=== PATIENT | female | born 1960 | race American Indian/Alaskan Native ===

== ENCOUNTER 2016-08-17 12:26 | Outpatient (CLI) | payer OTHER ==
--- NOTE | 2016-08-17 13:49 | XRay Report ---
LEFT KNEE, 3 views: History: Left knee pain. The bony architecture is intact without evidence of fracture or dislocation. A moderate joint effusion is suspected on the lateral image. IMPRESSION: Joint effusion. No acute bony abnormality.
== END 2016-08-17 12:27 | disposition home or self-care (01) ==
LOC: XRAY 12:26
PROVIDERS: ATTEND Nurse Practitioner Family
DX: M25.462 Effusion, left knee (principal)

== ENCOUNTER 2016-08-26 17:57 | Emergency (ER) | payer OTHER ==
--- NOTE | 2016-08-26 22:04 | Emergency Department Report ---
ED Lower Extremity HPI - General Chief Complaint: Extremity Injury, Lower Stated Complaint: LEFT LEG PAIN Time Seen by Provider: 08/26/16 22:03 Source: patient, family Mode of arrival: Ambulatory Limitations: No Limitations - History of Present Illness Initial Comments: Patient here reports that she has left knee pain and was sent from Dr. Allen office to get knee drained. She said she had an x-ray on August 17 and he says that she has some fluid in her knees and needs to be drained. Patient said that her knee is swollen. She denies any pain at present. Denies any fever or chills. Denies any redness to knee. Denies any injury to the knee. She has a history of arthritis. MD Complaint: other (left knee swelling and pain.) -: week(s) Injury: Knee: Left (swelling, pain. X-ray showed an effusion.) Type of Injury: unknown Place: home Severity scale (0 -10): 0 Improves With: NSAID Worsens With: weight bearing, movement Context: other Associated Symptoms: swelling, ambulatory. denies: numbness, tingling Treatments Prior to Arrival: other (none) - Related Data Previous Rx's Medication Instructions Recorded Last Taken Type Naproxen [Naprosyn TAB] 500 mg PO BID #20 tablet 08/26/16 Unknown Rx Allergies Allergy/AdvReac Type Severity Reaction Status Date / Time No Known Allergies Allergy Unverified 08/17/16 12:26 ED Review of Systems ROS: Stated complaint: LEFT LEG PAIN Other details as noted in HPI Comment: All other systems reviewed and negative Constitutional: denies: chills, fever ENT: denies: ear pain, throat pain, congestion Respiratory: no symptoms reported Cardiovascular: denies: chest pain, palpitations, edema, syncope Gastrointestinal: denies: abdominal pain, nausea, vomiting Musculoskeletal: joint swelling, arthralgia. denies: back pain, myalgia Skin: denies: rash Neurological: denies: headache, weakness, numbness, paresthesias, abnormal gait , vertigo ED Past Medical Hx - Past Medical History Previous Medical History?: Yes Hx Hypertension: Yes Hx Diabetes: Yes Additional medical history: Chronic back pain - Surgical History Past Surgical History?: Yes Additional Surgical History: FOOT SURGERY - Family History Family history: hypertension - Social History Smoking Status: Never Smoker Substance Use Type: None - Medications Home Medications: Home Medications Medication Instructions Recorded Confirmed Last Taken Type Naproxen [Naprosyn TAB] 500 mg PO BID #20 tablet 08/26/16 Unknown Rx ED Physical Exam - General Limitations: No Limitations General appearance: alert, in no apparent distress - Head Head exam: Present: atraumatic, normocephalic, normal inspection - Eye Eye exam: Present: normal appearance, PERRL, EOMI Pupils: Present: normal accommodation - Neck Neck exam: Present: normal inspection, full ROM. Absent: tenderness, lymphadenopathy - Respiratory Respiratory exam: Present: normal lung sounds bilaterally. Absent: respiratory distress, chest wall tenderness - Cardiovascular Cardiovascular Exam: Present: regular rate, normal rhythm, normal heart sounds - GI/Abdominal GI/Abdominal exam: Present: soft, normal bowel sounds. Absent: distended, tenderness, guarding, rebound, rigid - Expanded Lower Extremity Exam Left Hip exam: Present: normal inspection, full ROM, pelvic stability. Absent: tenderness, swelling, abrasion, laceration, ecchymosis, deformity, crepidus, dislocation, erythema, external rotation, internal rotation, shortening Upper Leg exam: Present: normal inspection, full ROM. Absent: tenderness, swelling, abrasion, laceration, ecchymosis, deformity, crepidus, dislocation, erythema Knee exam: Present: full ROM, tenderness (anterior knee), swelling (anterior knee), effusion, full knee extension. Absent: normal inspection, abrasion, laceration, ecchymosis, deformity, crepidus, dislocation, erythema, pain w/ pronation/supination Lower Leg exam: Present: normal inspection, full ROM. Absent: tenderness, swelling, abrasion, laceration, ecchymosis, deformity, crepidus, dislocation, erythema, palpable cord, Annalisa's sign Ankle exam: Present: normal inspection, full ROM. Absent: tenderness, swelling , abrasion, laceration, ecchymosis, deformity, crepidus, dislocation, erythema Foot/Toe exam: Present: normal inspection, full ROM. Absent: tenderness, swelling, abrasion, laceration, ecchymosis, deformity, crepidus, dislocation, erythema, amputation, puncture wound, tenderness at base of 5th metatarsal, nail avulsion, subungual hematoma Neuro vascular tendon exam: Present: no vascular compromise. Absent: pulse deficit, abnormal cap refill, motor deficit, sensory deficit, tendon deficit, extremity cold to touch, pallor, abnormal 2-point discrimination, decreased fine /light touch, foot drop, peroneal nerve deficit, significant pain with passive ROM of distal joint Gait: Positive: observed and limited by pain - Back Exam Back exam: Present: normal inspection, full ROM - Neurological Exam Neurological exam: Present: alert, oriented X3, normal gait - Psychiatric Psychiatric exam: Present: normal affect, normal mood - Skin Skin exam: Present: warm, dry, intact, normal color. Absent: rash ED Course Vital Signs 08/26/16 08/26/16 08/27/16 18:33 23:14 00:01 Temperature 98.1 F Pulse Rate 76 Respiratory 18 20 Rate Blood Pressure 161/103 Blood Pressure 140/100 [Left] O2 Sat by Pulse 100 Oximetry 08/27/16 00:24 Temperature 97.7 F Pulse Rate 56 L Respiratory 20 Rate Blood Pressure Blood Pressure [Left] O2 Sat by Pulse 96 Oximetry - Reevaluation(s) Reevaluation #1: 08/26/16 23:49 Patient given Courtenay 5/325 mg 2 tablets in emergency room for any pain. - Orthopedic Splinting/Casting Injury #1 Side: left Lower Extremity Injury Location: knee Lower Extremity Immobilizer: Farhan wrap Other Orthopedic Equipment: crutches ED Lower Extremity MDM - Lab Data Result diagrams: 08/26/16 22:22 Lab Results 08/26/16 08/26/16 08/26/16 Range/Units 22:22 22:46 22:46 WBC 7.6 (4.5-11.0) K/mm3 RBC 4.42 (3.65-5.03) M/mm3 Hgb 10.8 (10.1-14.3) gm/dl Hct 33.6 (30.3-42.9) % MCV 76 L (79-97) fl MCH 25 L (28-32) pg MCHC 32 (30-34) % RDW 16.3 H (13.2-15.2) % Plt Count 193 (140-440) K/mm3 Lymph % (Auto) 29.1 (13.4-35.0) % [place] % (Auto) 9.4 H (0.0-7.3) % Eos % (Auto) 3.0 (0.0-4.3) % Baso % (Auto) 0.9 (0.0-1.8) % Lymph # 2.2 (1.2-5.4) K/mm3 [place] # 0.7 (0.0-0.8) K/mm3 Eos # 0.2 (0.0-0.4) K/mm3 Baso # 0.1 (0.0-0.1) K/mm3 Seg Neutrophils % 57.6 (40.0-70.0) % Seg Neutrophils # 4.4 (1.8-7.7) K/mm3 ESR 60 (0-20) mm/Hr C-Reactive Protein 3.60 H (0.00-1.30) mg/dL - Radiology Data Radiology results: report reviewed X-ray results from 08/17/2016 reveals joint effusion with no fracture or dislocation of bone. - Medical Decision Making ED course: See procedure note for splinting. patient that she has a joint effusion and will need to follow-up with orthopedic for drainage. Patient is stable, her knee is not red and she is not running a fever. I discussed case with Dr. Arguelles who is attending physician along with lab results and with agreement the patient can be followed up with orthopedic doctor. See procedure note with splinting. I discussed with patient her diagnosis and treatment plan and she is in agreement. She was given Courtenay 5/325 mg 2 tablets emergency room for pain which relieved her pain. Discharged home with prescription for naproxen. Critical care attestation.: If time is entered above; I have spent that time in minutes in the direct care of this critically ill patient, excluding procedure time. ED Disposition Clinical Impression: Effusion of left knee joint Left knee pain Qualifiers: Chronicity: acute Qualified Code(s): M25.562 - Pain in left knee Disposition: DISCHARGED TO HOME OR SELFCARE Is pt being admited?: No Does the pt Need Aspirin: No Condition: Stable Instructions: Knee Effusion (ED), Arthralgia (ED) Additional Instructions: Please call orthopedic doctor's office on Sunday to schedule appointment for left knee effusion and removal of fluid from the knee. If You Noticed ,that your Left knee is getting red and you develop a fever or any redness with streaking. Return to emergency room JERRY. Avoid weight bearing to left lower extremity and keep Farhan wrap on until seen by orthopedic doctor. Prescriptions: Naproxen [Naprosyn TAB] 500 mg PO BID #20 tablet Referrals: MATEUSZ ASKEW MD [Staff Physician] - 08/28/16 PRIMARY CARE, [Primary Care Provider] - 2-3 Days Forms: Work/School Release Form(ED)
[2016-08-26] MEDS ORDERED: NORCO 5/325 PO ONE (22:21)
[2016-08-26 22:53] LABS: Basophils % (Auto) 0.9 % (0.0-1.8); Hematocrit 33.6 % (30.3-42.9); Hemoglobin 10.8 gm/dl (10.1-14.3); Mean Corpuscular HGB Conc 32 % (30-34); Mean Corpuscular Volume 76 fl (79-97); Platelet Count 193 K/mm3 (140-440); Red Blood Count 4.42 M/mm3 (3.65-5.03); Red Cell Distribution Width 16.3 % (13.2-15.2); White Blood Count 7.6 K/mm3 (4.5-11.0)
[2016-08-26 22:54] LABS: Mean Corpuscular Hemoglobin 25 pg (28-32)
[2016-08-27 00:02] VITALS: BP 140/100
== END 2016-08-27 00:26 | disposition home or self-care (01) ==
LOC: ED 17:57
DX: M25.462 Effusion, left knee (principal); M25.562 Pain in left knee
CPT/HCPCS: 36415; 85025; 85652; 86140; 99284

== ENCOUNTER 2019-02-19 07:29 | Day surgery (SDC) | payer OTHER ==
--- NOTE | 2019-02-19 08:17 | Anesthesia Consultation ---
Anesthesia Consult and Med Hx Date of service: 02/19/19 - Airway Anesthetic Teeth Evaluation: Poor ROM Head & Neck: Adequate Mental/Hyoid Distance: Adequate Mallampati Class: Class III Intubation Access Assessment: Probably Good - Pulmonary Exam CTA: Yes - Cardiac Exam Cardiac Exam: RRR - Pre-Operative Health Status ASA Pre-Surgery Classification: ASA2 Proposed Anesthetic Plan: MAC - Cardiovascular System Hx Hypertension: Yes - Endocrine Hx Non-Insulin Dependent Diabetes: Yes - Other Systems Hx Obesity: Yes
--- NOTE | 2019-02-19 08:22 | Anesthesia Day of Surgery ---
Anesthesia Day of Surgery - Day of Surgery Patient Examined: Yes Patient H&P Reviewed: Yes Patient is NPO: Yes Beta Blockers: No
[2019-02-19] MEDS ORDERED: SODIUM CHLORIDE 0.9% 1000 ML 1,000 ML IV SCH (09:00)
[2019-02-19] MEDS ORDERED: PROPOFOL 200 MG/20 ML VIAL IV ONE ×2 (09:19)
[2019-02-19] MEDS ORDERED: fentaNYL 100 MCG/2 ML INJ ONE (09:29)
--- NOTE | 2019-02-19 09:53 | Short Stay Summary ---
Short Stay Documentation Date of service: 02/19/19 - History H&P: obtained from office - Allergies and Medications Current Medications: Allergies No Known Allergies Allergy (Verified 02/19/19 08:03) Home Medications Medication Instructions Recorded Confirmed Last Taken Type AtorvaSTATin [Lipitor] 10 mg PO QHS 02/19/19 02/19/19 02/18/19 10:00 History Pioglitazone [Actos] 15 mg PO QDAY 02/19/19 02/19/19 02/18/19 10:00 History amLODIPine [Norvasc] 10 mg PO DAILY 02/19/19 02/19/19 02/19/19 05:50 History Active Medications Sodium Chloride (Nacl 0.9% 1000 Ml) 1,000 mls @ 50 mls/hr IV DIRECT EDU Last Admin: 02/19/19 08:15 Dose: 50 mls/hr Documented by: - Brief post op/procedure progress note Date of procedure: 02/19/19 Findings: see dictation Estimated blood loss: none Pathology: list (Biopsies of stomach antrum for h.pylori) Specimen disposition: to lab Condition: stable - Disposition Condition at discharge: Good Disposition: DC-01 TO HOME OR SELFCARE - Discharge Diagnoses (1) Epigastric pain Status: Acute (2) Colon cancer screening Status: Acute Short Stay Discharge Plan Activity: other (no driving for 24 hours) Weight Bearing Status: Full Weight Bearing Diet: regular Follow up with: HAL CANCINO III, APRN-BC [Primary Care Provider] - 7 Days
--- NOTE | 2019-02-19 09:55 | Operative Report ---
Operative Report Operative Report: Date of procedure: 02/19/2019 Preprocedure diagnosis: CANCER SCREENING, AVERAGE RISK. NO PRIOR STUDIES. Post procedure diagnosis: Rare right colon diverticula. Procedure: Colonoscopy to the cecum Endoscopist: Dr. López Anesthesia: Monitored anesthesia care per anesthesia department Estimated blood loss: 0 Medications: Monitored anesthesia care. See separate report by anesthesia for details. After careful discussion of the nature and purpose of the procedure as well as details of the technique risks benefits and alternatives the patient gave consent. Please see recent history and physical from the office. The patient was placed in the left lateral decubitus position and medicated per anesthesia. A rectal exam was performed sphincter tone was normal there were no masses palpable. The Smartaxin 570 scope was passed transanally and advanced under continuous direct vision without difficulty to the cecum. The colon was well prepared. The cecum was normal. The ascending colon revealed rare reticula, otherwise was normal and on forward and retroflexed views. The transverse colon, descending colon, and sigmoid colon were normal. The rectum was normal on forward and retroflexed views. The procedure was well-tolerated overall and the patient was observed in recovery. Conclusions: Rare ascending colon diverticula, otherwise normal colonoscopy to the cecum. Plan: Repeat colonoscopy in 10 years, sooner if clinically indicated. Signed electronically: Evan López M.D.
--- NOTE | 2019-02-19 09:59 | Operative Report ---
Operative Report Operative Report: Date of procedure: 02/19/2019 Procedure: Esophagogastroduodenoscopy with biopsies for H. pylori. Preprocedure diagnosis: Severe epigastric pain. Post procedure diagnosis: Severe erosive gastritis. Small hiatus hernia. Endoscopist: Dr. López Anesthesia: Monitored anesthesia care per anesthesia department Medications: Propofol per anesthesia. Estimated blood loss: 0 After careful discussion of the nature and purpose of the procedure as well as details the technique risks benefits and alternatives consent was obtained. The patient was placed in the left lateral decubitus position and medicated per anesthesia. The tip of the [email or web address] 570 video scope was passed per orum under direct vision into the esophagus and advanced into the stomach and descending duodenum. The descending duodenum the duodenal bulb and pylorus were symmetrical and normal. The scope was withdrawn into the stomach and the stomach then gently insufflated with air. The antrum revealed multiple linear and oval erosions. One deep erosion was noted on the lesser curvature of the pyloric antrum. Deep ulcers however. Multiple biopsies were taken for H. pylori testing. The stomach was further insufflated and the scope was then retroflexed and partially withdrawn. The cardia, fundus, and body of the stomach were within normal limits and easily distensible.The scope was then withdrawn in the forward position. A small hiatus hernia was present. The esophagogastric junction was at 38 cm. The esophageal body was normal throughout. The procedure was was well tolerated and the patient was observed in recovery. Impressions: Severe erosive antral gastritis. Small hiatus hernia. Plan: Await biopsies for H. pylori testing. Avoidance of NSAIDs. Continue acid suppression therapy pending pathology results. The patient will call the office in 1 week to discuss the findings and further management. Electronically signed: Evan López MD
[2019-02-19 10:36] VITALS: BP 125/75
--- NOTE | 2019-02-19 15:50 | Post Anesthesia Evaluation ---
- Post Anesthesia Evaluation Patient Participated: Yes Airway Patent: Yes Stable Respiratory Function: Yes Nausea/Vomiting: No Temp > 96.8F: Yes Pain Manageable: Yes Adequeate Hydration: Yes Anesthesia Complications: No Block Receding Appropriately: Not Applicable Patient on Ventilator: No
== END 2019-02-19 07:30 | disposition home or self-care (01) ==
LOC: GIO 07:29
PROVIDERS: ATTEND Internal Medicine Gastroenterology
DX: R10.9 Unspecified abdominal pain (principal); R10.13 Epigastric pain; K57.30 Diverticulosis of large intestine without perforation or abscess without bleeding; K29.50 Unspecified chronic gastritis without bleeding; K44.9 Diaphragmatic hernia without obstruction or gangrene; E11.9 Type 2 diabetes mellitus without complications; I10 Essential (primary) hypertension; E66.9 Obesity, unspecified; Z80.0 Family history of malignant neoplasm of digestive organs; Z80.1 Family history of malignant neoplasm of trachea, bronchus and lung; Z79.899 Other long term (current) drug therapy; Z98.890 Other specified postprocedural states; Z68.41 Body mass index [BMI] 40.0-44.9, adult
CPT/HCPCS: 43239; 45378; 82962; 88305; 88342; J2704; J3010; J7030